=== PATIENT | female | born 1950 | race Caucasian/White ===

== ENCOUNTER 2017-01-06 09:17 | Emergency (ER) | payer MEDICARE, BC ==
[2017-01-06 09:31] VITALS: BP 140/70
--- NOTE | 2017-01-06 10:07 | EDM.PDOC ---
ED HPI GENERAL MEDICAL PROBLEM - General Chief Complaint: Skin Complaint Stated Complaint: INFECTION IN THE BACK OF HEAD NECK Time Seen by Provider: 01/06/17 09:55 Source of Information: Reports: Patient History Limitations: Reports: No Limitations - History of Present Illness INITIAL COMMENTS - FREE TEXT/NARRATIVE: This lady is here for some kind of infection on the back of her neck. She was seen in clinic a few days ago and was put on Septra but she feels like it's getting worse and very painful Head Pain Score (Numeric/FACES): 10 - Related Data Allergies Allergy/AdvReac Type Severity Reaction Status Date / Time No Known Allergies Allergy Verified 01/06/17 09:33 Home Meds: Home Meds Levothyroxine [Sythroid] 100 mcg PO DAILY 01/06/17 [History] Sulfamethoxazole/Trimethoprim [Sulfamethoxazole-Tmp Ds Tablet] 1 each PO BID [History] Triamterene/Hydrochlorothiazid [Triamterene-HCTZ 37.5-25 MG] 1 tab PO DAILY [History] Past Medical History HEENT History: Reports: Impaired Vision Cardiovascular History: Reports: Hypertension NUTRITION SERVICES ASSISTANT History: Reports: Endocrine/Metabolic History: Reports: Hypothyroidism - Infectious Disease History Infectious Disease History: Reports: Chicken Pox, Measles, Mumps - Past Surgical History Female Surgical History: Reports: Hysterectomy Musculoskeletal Surgical History: Reports: Shoulder Surgery Social & Family History - Tobacco Use Smoking Status *Q: Never Smoker Second Hand Smoke Exposure: No - Caffeine Use Caffeine Use: Reports: Coffee, Tea - Recreational Drug Use Recreational Drug Use: No ED ROS GENERAL - Review of Systems Review Of Systems: ROS reveals no pertinent complaints other than HPI. ED EXAM, SKIN/RASH Exam: See Below Exam Limited By: No Limitations General Appearance: Alert, WD/WN, Mild Distress Neck: Other (There is a very large cutaneous abscess to the posterior scalp in the suboccipital area it's fluctuant somewhere on the order of 8 cm in diameter. ) Skin: Other (As above) Course - Vital Signs Last Recorded V/S: Last Vital Signs Temp 37.1 C 01/06/17 09:41 Pulse 122 H 01/06/17 09:41 Resp 16 01/06/17 09:41 BP 140/70 01/06/17 09:41 Pulse Ox 96 01/06/17 09:41 - Re-Assessments/Exams Free Text/Narrative Re-Assessment/Exam: 01/06/17 10:06 Dr. Avina was called has come to the ER to see the patient Departure - Departure Time of Disposition: 10:06 Disposition: Home, Self-Care 01 Condition: Fair Clinical Impression: Cutaneous abscess of neck - Discharge Information Forms: ED Department Discharge Additional Instructions: Instructions as per Dr. Avina
[2017-01-06] MEDS: Lidocaine 1% 20 ML MDV INJECT ONE ×2 (10:18→10:19)
[2017-01-06] MEDS ORDERED: Bacitracin Oint 1 GM U/D Packet TOP ONE (10:32)
--- NOTE | 2017-01-07 08:29 | OR ---
DATE OF PROCEDURE: 01/06/2017 PROCEDURE: Abscess drainage, occiput of head. COMPLICATIONS: None. DYNAMOMETER MECHANIC: None. ANESTHESIA: Local. PREOPERATIVE DIAGNOSIS: Abscess. POSTOPERATIVE DIAGNOSIS: Abscess. RISK: Risks, benefits, alternatives, limitations including, but not limited to infection, bleeding, chronic wound sepsis formation and other risks were explained to the patient and wished to proceed. PROCEDURE IN DETAIL: The patient was placed in prone position. The area was prepped and draped. This was anesthetized with lidocaine with epinephrine. A single catrachito was created in the skin approximately 7 mm in size. This was then opened up with a Maggie clamp. A large amount of pus was noted. This was cultured. This was then thoroughly irrigated with approximately 500 mL of irrigation. Iodoform packing was placed within this. Dressings were applied. The patient tolerated the procedure well. Juanito Avina MD /[id number]
== END 2017-01-06 11:08 | disposition home or self-care (01) ==
LOC: JP.ED 09:17
DX: L02.11 Cutaneous abscess of neck (principal); I10 Essential (primary) hypertension; E03.9 Hypothyroidism, unspecified; Z90.710 Acquired absence of both cervix and uterus; Z98.890 Other specified postprocedural states; Z79.899 Other long term (current) drug therapy
CPT/HCPCS: 87070; 87077; 87186; 87205; 99283

== ENCOUNTER → 2017-01-11 15:47 | Observation (INO) | payer MEDICARE, BC ==
[2017-01-10] MEDS: Sodium Chloride 0.9% 1,000 ML IV SCH (19:22)
[2017-01-11] MEDS: Sodium Chloride 0.9% 1,000 ML IV SCH (01:49)
[2017-01-11 02:03] VITALS: BP 96/53
--- NOTE | 2017-01-11 13:48 | PN ---
DATE OF SERVICE: 01/11/2017 SUBJECTIVE: The patient is significantly improved overnight. Pain is well controlled. No nausea, vomiting, shortness of breath, or chest pain. OBJECTIVE: VITAL SIGNS: Temperature 99.0, blood pressure 136/61, pulse , respirations 16. CARDIOVASCULAR: Regular rhythm and rate. RESPIRATORY: Lungs clear to consultation bilaterally. ABDOMEN: Bowel sounds are positive. Wound is improved with respect to cellulitis. ASSESSMENT: Cellulitis secondary to methicillin-resistant Staphylococcus aureus. PLAN: The patient will continue IV antibiotics. A PICC line was placed today and she will be worked on for home antibiotics. Juanito Avina MD /[id number]
[~2017-01-11 15:47] MED LIST: Acetaminophen 325 MG Tab PO PRN; Benzocaine/Cetylpyridinium/Menthol Lozenge MUCMEM PRN; Bisacodyl 5 MG Tab PO PRN; Docusate Sodium 100 MG Cap PO PRN; Ondansetron 4 MG/2 ML SDV IVPUSH PRN; Polyethylene Glycol 3350 Powder 17 GM Packet PO PRN; Promethazine 25 MG/ML SDV IM PRN; Sodium Chloride 0.9% 1,000 ML IV SCH; Sodium Chloride 0.9% 10 ML Syringe IV PRN; Vancomycin 1.1 GM in Sodium Chloride 0.9% 250 ML IV ONE; Zolpidem 5 MG Tab PO PRN; diphenhydrAMINE 50 MG/ML SDV IVPUSH PRN; hydrOXYzine HCl 100 MG/2 ML SDV IM PRN
--- NOTE | 2017-02-01 08:31 | HP ---
DATE OF SERVICE: 01/10/2017 ADDENDUM: PLAN: Will be to admit the patient for IV antibiotics and observation at this time. Juanito Avina MD /[id number]
== END | disposition home or self-care (01) ==
LOC: UNDOADMIN 01-10 13:45 → JP.MS 01-10 13:45 → JP.ACU 01-10 13:45 → JP.ICU 01-10 13:45 → EDSTATUS 01-10 14:00 → JP.ICU 01-10 14:28 → JP.MS 01-10 14:28 → JP.ICU 01-10 14:28 → UNDODISIN 15:47
PROVIDERS: ADMIT Surgery; ATTEND Surgery
DX: M86.9 Osteomyelitis, unspecified (principal); A49.02 Methicillin resistant Staphylococcus aureus infection, unspecified site; I10 Essential (primary) hypertension; E03.9 Hypothyroidism, unspecified; Z90.710 Acquired absence of both cervix and uterus; Z98.890 Other specified postprocedural states; Z79.2 Long term (current) use of antibiotics
CPT/HCPCS: 36415; 80048; 82565; 85025; A9270; J3370; J7040; J7050; 96361; 96365; 96366; G0378

== ENCOUNTER → 2022-01-12 | Day surgery (SDC) | payer MEDICARE, BC ==
[~2022-01-12] MED LIST changes: -Acetaminophen 325 MG Tab PO PRN; +Barium Sulfate 105% w/v Susp 1,900 ML Bottle RECTAL ONE; -Benzocaine/Cetylpyridinium/Menthol Lozenge MUCMEM PRN; -Bisacodyl 5 MG Tab PO PRN; -Docusate Sodium 100 MG Cap PO PRN; +Lactated Ringers 1,000 ML IV SCH; +Midazolam 1 MG/ML 2 ML SDV ONE; -Ondansetron 4 MG/2 ML SDV IVPUSH PRN; -Polyethylene Glycol 3350 Powder 17 GM Packet PO PRN; -Promethazine 25 MG/ML SDV IM PRN; +Propofol 200 MG/20 ML SDV ONE; -Sodium Chloride 0.9% 1,000 ML IV SCH; -Sodium Chloride 0.9% 10 ML Syringe IV PRN; -Vancomycin 1.1 GM in Sodium Chloride 0.9% 250 ML IV ONE; -Zolpidem 5 MG Tab PO PRN; -diphenhydrAMINE 50 MG/ML SDV IVPUSH PRN; +fentaNYL 100 MCG/2 ML SDV ONE; -hydrOXYzine HCl 100 MG/2 ML SDV IM PRN
[2022-01-12 13:56] VITALS: BP 133/71; PULSE 94
== END ==
LOC: JP.SDS 07:27
PROVIDERS: ATTEND Family Medicine
DX: Z12.11 Encounter for screening for malignant neoplasm of colon (principal); I10 Essential (primary) hypertension; E78.5 Hyperlipidemia, unspecified; Z79.899 Other long term (current) drug therapy
CPT/HCPCS: 74270; G0104; J2250; J2704; J3010; J7120

== ENCOUNTER 2022-12-31 15:21 | Emergency (ER) | payer MEDICARE, BC ==
[2022-12-31 17:05] VITALS: BP 146/64; PULSE 77
== END 2022-12-31 17:59 | disposition home or self-care (01) ==
LOC: JP.ED 15:21
DX: Z42.1 Encounter for breast reconstruction following mastectomy (principal); E05.90 Thyrotoxicosis, unspecified without thyrotoxic crisis or storm; I10 Essential (primary) hypertension; Z79.899 Other long term (current) drug therapy
CPT/HCPCS: 99283

== ENCOUNTER 2023-01-29 06:58 | Day surgery (SDC) | payer MEDICARE, BC ==
[~2023-01-29 06:58] MED LIST changes: -Barium Sulfate 105% w/v Susp 1,900 ML Bottle RECTAL ONE; +Bupivacaine 0.5% 50 ML MDV ONE; -Lactated Ringers 1,000 ML IV SCH; +Lidocaine 1% with EPINEPHrine 1:100,000 50 ML MDV ONE; -Midazolam 1 MG/ML 2 ML SDV ONE; -Propofol 200 MG/20 ML SDV ONE; -fentaNYL 100 MCG/2 ML SDV ONE
[2023-01-29] MEDS ORDERED: Propofol 200 MG/20 ML SDV ONE (07:08)
[2023-01-29] MEDS ORDERED: fentaNYL 100 MCG/2 ML SDV ONE (07:08)
[2023-01-29] MEDS ORDERED: Midazolam 1 MG/ML 2 ML SDV ONE (07:08)
[2023-01-29] MEDS ORDERED: Metoprolol Tartrate 25 MG Tab PO ONE (07:11)
[2023-01-29] MEDS ORDERED: Dextrose 5%-Lactated Ringers 1,000 ML IV SCH (07:30)
[2023-01-29] MEDS ORDERED: Linezolid 600 MG in Premix Bag 1 BAG IV ONE (08:00)
[2023-01-29] MEDS ORDERED: Ondansetron 4 MG/2 ML SDV IVPUSH ONE (10:23)
[2023-01-29 10:50] VITALS: BP 127/63; PULSE 66
== END 2023-01-29 11:26 | disposition home or self-care (01) ==
LOC: JP.SDS 06:58
PROVIDERS: ATTEND Surgery
DX: C50.912 Malignant neoplasm of unspecified site of left female breast (principal); I10 Essential (primary) hypertension; M19.90 Unspecified osteoarthritis, unspecified site; E03.9 Hypothyroidism, unspecified; Z86.14 Personal history of Methicillin resistant Staphylococcus aureus infection
CPT/HCPCS: 36561; 76000; A9270; C1788; J1642; J2020; J2250; J2405; J2704; J3010; J3490; J7121

== ENCOUNTER 2023-03-04 08:42 | Emergency (ER) | payer MEDICARE, BC ==
[2023-03-04 09:25] VITALS: PULSE 114
[2023-03-04 10:15] LABS: HEMATOCRIT 42.8 % (34.3-46.0); HEMOGLOBIN 14.2 g/dL (11.2-15.5); MEAN CORPUSCULAR HEMOGLOBIN 29.9 pg (31.6-35.5); MEAN CORPUSCULAR HGB CONC 33.2 g/dL (31.6-35.5); MEAN CORPUSCULAR VOLUME 90.1 fL (81.4-99.0); PLATELET COUNT,PLT 180 K/uL (130-375); RED BLOOD CELL COUNT 4.75 M/uL (3.77-5.24)
[2023-03-04 10:44] LABS: CALCIUM 9.5 mg/dL (8.5-10.1); CREATININE 0.9 mg/dL (0.6-1.0); EST CRCL DRUG DOSING (CG) 42.01 mL/min; MAGNESIUM 1.9 mg/dL (1.8-2.4); POTASSIUM,K 3.8 mmol/L (3.6-5.2); T4 FREE 1.39 ng/dL (0.76-1.46); TSH ULTRASENSITIVE 5.485 uIU/mL (0.358-3.740)
[2023-03-04 10:45] LABS: ANION GAP 14.8 mmol/L (5.0-14.0)
[2023-03-04 11:31] LABS: BAND PERCENT MAN 15 % (5-11); EOSINOPHILS ABSOLUTE MAN 0.12 K/uL (0.00-0.40); EOSINOPHILS PERCENT MAN 1 % (2-4); LYMPHOCYTES ABSOLUTE MAN 1.68 K/uL (0.8-3.3); LYMPHOCYTES PERCENT MAN 14 % (24-44); METAMYELOCYTE ABSOLUTE MAN 1.44 K/uL; METAMYELOCYTE PERCENT MAN 12 %; MONOCYTES ABSOLUTE MAN 0.84 K/uL (0.20-0.90); MONOCYTES PERCENT MAN 7 % (2-6); MYELOCYTE ABSOLUTE MAN 1.08; MYELOCYTE PERCENT MAN 9 %; NEUTROPHILS ABSOLUTE MAN 5.04 K/uL (1.0-7.6); SEG NEUTROPHILS PERCENT MAN 42 % (36-66)
[2023-03-04 11:40] VITALS: BP 140/60
[2023-03-04 12:04] LABS: APPEARANCE,URINE CLEAR (CLEAR); BILIRUBIN,URINE NEGATIVE (NEGATIVE); GLUCOSE,URINE NEGATIVE (NEGATIVE); KETONES,URINE NEGATIVE (NEGATIVE); LEUKOCYTE ESTERASE,URINE NEGATIVE (NEGATIVE); NITRITE,URINE NEGATIVE (NEGATIVE); OCCULT BLOOD,URINE NEGATIVE (NEGATIVE); PROTEIN,URINE NEGATIVE (NEGATIVE); UROBILINOGEN,URINE 0.2 EU/dL (0.2-1.0)
[2023-03-04 12:21] LABS: COLOR,URINE OTHER (YELLOW)
[2023-03-04 12:22] LABS: AMORPHOUS SEDIMENT,URINE NOT SEEN; BACTERIA,URINE NOT SEEN; EPITHELIAL CELLS,URINE FEW; MUCUS,URINE NOT SEEN; RBC,URINE NOT SEEN (0-5); WBC,URINE 0-5 (0-5)
== END 2023-03-04 12:48 | disposition home or self-care (01) ==
LOC: JP.ED 08:42
DX: E86.0 Dehydration (principal); J40 Bronchitis, not specified as acute or chronic; E03.8 Other specified hypothyroidism; I10 Essential (primary) hypertension; Z86.16 Personal history of COVID-19; Z79.899 Other long term (current) drug therapy; Z79.82 Long term (current) use of aspirin
CPT/HCPCS: 36415; 71046; 71046-26; 80048; 81001; 83735; 84145; 84439; 84443; 85025; 85379; 93005; 99284

== ENCOUNTER 2023-09-09 07:56 | Day surgery (SDC) | payer MEDICARE, BC ==
[~2023-09-09 07:56] MED LIST changes: -Bupivacaine 0.5% 50 ML MDV ONE; -Lidocaine 1% with EPINEPHrine 1:100,000 50 ML MDV ONE; +Propofol 200 MG/20 ML SDV ONE; +fentaNYL 50 MCG/ML SDV ONE
[2023-09-09] MEDS: Lactated Ringers 1,000 ML IV SCH (09:01)
[2023-09-09 11:16] VITALS: BP 112/66; PULSE 90
== END 2023-09-09 11:20 | disposition home or self-care (01) ==
LOC: JP.SDS 07:56
PROVIDERS: ATTEND Student in an Organized Health Care Education/Training Program
DX: K44.9 Diaphragmatic hernia without obstruction or gangrene (principal); R10.9 Unspecified abdominal pain; I10 Essential (primary) hypertension; E03.9 Hypothyroidism, unspecified; R10.13 Epigastric pain; Z79.899 Other long term (current) drug therapy
CPT/HCPCS: 43239; 88305; J1642; J2704; J3010; J7120